=== PATIENT | female | born 1980 | race Caucasian/White ===

== ENCOUNTER 2019-11-06 19:17 | Inpatient (IN) | payer OTHER ==
[2019-11-06] MEDS ORDERED: Ondansetron PF 4 MG/2 ML Vial ONE ×2 (20:03→21:24)
[2019-11-06] MEDS ORDERED: Neomycin-Polymyxin 1 ML AMP ONE (20:40)
[2019-11-06] MEDS ORDERED: Bupivacaine PF 0.5% 30 ML VIAL ONE (20:41)
[2019-11-06] MEDS ORDERED: Lidocaine 1% PF 5 ML VIAL ONE (21:24)
[2019-11-06] MEDS ORDERED: Succinylcholine Chloride 20 MG/ML 10 ml SYRINGE FS ONE (21:24)
[2019-11-06] MEDS ORDERED: PROPOFOL 200 MG/20 ML VIAL ONE (21:24)
[2019-11-06] MEDS ORDERED: Ketorolac Tromethamine 30 MG/ML VIAL ONE (21:24)
[2019-11-06] MEDS ORDERED: Rocuronium Bromide 10 MG/ML (10ML VIAL) ONE (21:24)
[2019-11-06] MEDS ORDERED: Dexamethasone 20 MG/5 ML VIAL ONE (21:24)
--- NOTE | 2019-11-06 22:58 | RAD ---
LEFT ANKLE TWO VIEWS: History: Fracture of the tibia and fibula. FINDINGS: Four spot fluoroscopic images of the left ankle demonstrate interval reduction of the distal tibial f racture since earlier exam at 6:10 p.m. The displaced fracture of the fibula is unchanged. A fracture fragment is seen at the lateral aspect of the distal tibia. POS: OFF
[2019-11-06] MEDS ORDERED: Promethazine HCl 25 MG/ML VIAL IM PRN (23:06)
[2019-11-06] MEDS ORDERED: Promethazine HCl 25 MG/ML VIAL SLOW IVP PRN (23:06)
[2019-11-06] MEDS ORDERED: Ondansetron HCl/PF 4 MG/2 ML Vial IVP PRN (23:06)
[2019-11-06] MEDS ORDERED: Fentanyl 100 MCG/2 ML VIAL ONE (23:11)
[2019-11-07] MEDS ORDERED: Promethazine HCl 25 MG/ML VIAL IM PRN (00:48)
[2019-11-07] MEDS ORDERED: Dextrose 50% Abboject 50 ML SYRINGE SLOW IVP PRN (00:48)
[2019-11-07] MEDS ORDERED: Ondansetron ODT 4 MG TAB PO PRN (00:48)
[2019-11-07] MEDS ORDERED: Ondansetron PF 4 MG/2 ML Vial IVP PRN (00:48)
[2019-11-07] MEDS ORDERED: hydrALAZINE 20 MG/ML VIAL SLOW IVP PRN (00:48)
[2019-11-07] MEDS ORDERED: Dextrose 5% in Water 1,000 ML IV PRN (00:48)
[2019-11-07] MEDS: Cyclobenzaprine 10 MG TAB PO PRN ×3 (01:09→17:44)
[2019-11-07] MEDS: traMADol HCl 50 MG TAB PO PRN ×4 (01:10→17:45)
[2019-11-07] MEDS: CEFAZOLIN 2 GM in Premix Bag 1 BAG IVPB SCH ×3 (01:11→17:41)
[2019-11-07] MEDS ORDERED: Acetaminophen 325 MG TAB PO SCH (01:15)
[2019-11-07] MEDS ORDERED: traMADol HCl 50 MG TAB PO SCH (01:15)
[2019-11-07] MEDS ORDERED: Ibuprofen 600 MG TAB PO SCH (01:15)
[2019-11-07 01:26] VITALS: BMI 30.7
--- NOTE | 2019-11-07 03:14 | HP ---
This is Luis E Hawkins PA-C dictating a report for Dr. Altamirano. REQUESTING PHYSICIAN: Du Mckeon. ATTENDING SURGEON: Dr. Altamirano. CONSULTATIONS: Orthopedics, Dr. Lauren. HISTORY OF PRESENT ILLNESS: The patient is a 39-year-old woman who was transferred to our facility from [place] after she had fallen from a ladder and sustained a left open tibia and fibular fracture. She was taken to the operating room shortly after arriving here and I was notified once she had been postop from an external fixator placement. At the time of my exam, she was already on the surgical floor. The patient denied any loss of consciousness. Family at bedside confirmed this. Her chief complaint is numbness and tingling to her left foot. ALLERGIES: IODINE AND STADOL. CURRENT MEDICATIONS: Symbicort. PAST MEDICAL HISTORY: Asthma. PAST SURGICAL HISTORY: Partial hysterectomy, bilateral tubal ligation. SOCIAL HISTORY: The patient denies drug or tobacco use. She rarely drinks alcohol and she lives at home with family. REVIEW OF SYSTEMS: 10-point review of systems is negative except as otherwise stated. PHYSICAL EXAMINATION: VITAL SIGNS: Temperature is 98.2, heart rate 100, blood pressure 125/82, respirations 18, oxygen saturation 100% on room air. GENERAL: The patient is resting comfortably in bed. She is awake, alert, and oriented x3. [place] Coma Scale is 15. HEENT: Head is normocephalic and atraumatic. Eyes, extraocular motions intact. PERRLA bilaterally. Ears are atraumatic without discharge. Nose is atraumatic without discharge. Oropharynx is clear. NECK: Nontender. Trachea is midline. No JVD. CHEST: Clear to auscultation with good inspiratory and expiratory effort. HEART: Regular rate and rhythm. ABDOMEN: Soft, flat, nontender with active bowel sounds. EXTREMITIES: Neurovascularly intact x4. The left lower extremity, the patient has "numbness and tingling." She is grossly neurologically intact. Capillary refill is less than 2 seconds in that foot. Patient's external fixator is in place. Pin site is clean, dry, and intact. LABORATORY DATA: There are no labs to review. RADIOGRAPHS: Postop radiographs of the left ankle demonstrate interval reduction of the distal tibia and fibular fractures from earlier. The displaced fracture of the fibula is unchanged. ASSESSMENT AND PLAN: 1. Status post fall from ladder approximately 4 feet. 2. Open left tibia and fibular fracture. 3. Status post external fixator placement. 4. Acute pain secondary to above. 5. Left lower extremity neurapraxia, present on arrival. PLAN: Plan will be to initiate a diet. The patient will have pain control in the morning. Begin physical and occupational therapy and discuss placement. The patient initially would like to be discharged home. Job ID: [id number]
[2019-11-07] MEDS: Acetaminophen 325 MG TAB PO SCH ×3 (05:03→17:42)
[2019-11-07] MEDS: Ibuprofen 600 MG TAB PO SCH ×3 (05:03→21:06)
[2019-11-07] MEDS: traMADol HCl 50 MG TAB PO SCH ×3 (05:04→17:45)
[2019-11-07 05:06] LABS: #Lymphocytes 1.1 thou/uL (1.20-3.40); #Monocytes 0.6 thou/uL (0.11-0.59); #Neutrophils 15.6 thou/uL (1.40-6.50); %Basophils 0.1 % (0.0-1.0); %Lymphocytes 6.3 % (21.0-51.0); %Monocytes 3.2 % (0.0-10.0); %Neutrophils 90.3 % (42.0-75.0); Hemoglobin 10.8 g/dL (12.0-16.0); Mean Corpuscular Hemoglobin 30.7 pg (27.0-31.0); Mean Corpuscular Volume 90.5 fL (78.0-98.0); Platelet Count 269 thou/uL (130-400); RBC Distribution Width 13.5 % (11.5-14.5); White Blood Cell (WBC) Count 17.3 thou/uL (4.8-10.8)
[2019-11-07 05:27] LABS: Anion Gap 16 mmol/L (10-20); BUN (Urea Nitrogen) 7 mg/dL (7.0-18.7); Calc. Creatinine Clearance 137 mL/min (70-130); Calcium 8.4 mg/dL (7.8-10.44); Carbon Dioxide 16 mmol/L (22-29); Chloride 107 mmol/L (98-107); Estimated GFR-MDRD 89; Glucose 143 mg/dL (70-105); Potassium 4.2 mmol/L (3.5-5.1); Sodium 135 mmol/L (136-145)
[2019-11-07] MEDS ORDERED: Mometasone/Formoterol 120 PUFF INHALER INH PRN (06:30)
--- NOTE | 2019-11-07 07:55 | CT ---
PRELIMINARY REPORT/[facility]/EMERGENCY AFTER HOURS PROCEDURE EXAM: CT LOWER EXT LT WO CON HISTORY: S/P SURGERY COMPARISON: None FINDINGS: Comminuted mild displaced fracture of the proximal fibular head. Comminuted displaced fracture of the distal tibial metaphysis, with intra-articular extension to the tibial plafond and. Displaced, foreshortened distal fibular shaft fracture. External fixation hardware, with fixation screws within the proximal tibial shaft and calcaneus. Soft tissue emphysema throughout the ankle, superimposed on soft tissue swelling. IMPRESSION: 1. External fixation hardware spanning a distal tibial fracture. 2. Additional proximal and distal fibular fractures as above. ELECTRONICALLY SIGNED BY: Donnie Grace MD Nov 07, 2019 12:42:32 AM LEGAL COLLECTOR This report is intended for review by the ordering physician only, in accordance of law. If you recei ve this report in error, please call [facility] at [phone]. FINAL REPORT EMERGENT AFTER HOURS NONCONTRAST CT DISTAL LEFT LOWER EXTREMITY: HISTORY: Distal tibia, open fracture. Patient is post surgical repair. IMPRESSION: 1. Comminuted distal left tibial metaphyseal fracture with intra-articular extension of the fracture 2. Displaced fracture involving the distal fibular diaphysis with distal fracture fragment displaced laterally by one shaft width. A comminuted fracture involving the fibular head is also seen. There is mild displacement of fracture fragments. 3. Skin clips are seen medial to the level of the distal tibial fracture. There is prominent subcutan eous emphysema at the level of the distal tibial fracture. 4. External fixation device in place transfixing the distal left lower extremity. 5. Mild subcutaneous edema is present at level of fractures. Findings are in agreement with the report by [facility]. Code QA Transcribed Date/Time: 11/07/2019 8:28 AM
[2019-11-07] MEDS: Famotidine 20 MG TAB PO SCH ×2 (08:19→21:06)
[2019-11-07] MEDS: Enoxaparin Sodium 40 MG/0.4 ML SYRINGE SC SCH (09:13)
--- NOTE | 2019-11-07 13:17 | RAD ---
EXAM: 2 views of the right hip HISTORY: Right hip pain after fall from a ladder COMPARISON: None FINDINGS: 2 views of the right hip shows no evidence of acute fracture or dislocation. No degenerativ e changes are seen. No soft tissue swelling is present. IMPRESSION: No evidence of acute osseous abnormality.
--- NOTE | 2019-11-07 13:21 | RAD ---
AP PELVIS: HISTORY: Fall from ladder, pelvic pain, hip pain. FINDINGS/IMPRESSION: No acute fracture or dislocation is identified. POS: LOUIE
--- NOTE | 2019-11-07 14:50 | PRG ---
DATE OF SERVICE: 11/07/2019 SUBJECTIVE: The patient complains of left knee and left ankle pain. She also complains of some right hip pain. Pain is controlled with medications. No acute events overnight. OBJECTIVE: VITAL SIGNS: Temperature 98.2, pulse 69, respirations 18, 100% on room air, blood pressure 103/67. GENERAL: Alert and oriented x3, no acute distress. RESPIRATORY: Nonlabored. CARDIOVASCULAR: Regular rate. MUSCULOSKELETAL: Evaluation of left lower extremity demonstrates some swelling about the left knee. She is tender to palpation over the lateral aspect of the left knee as well. She has positive FHL and EHL. She has minor drainage on the external fixation dressings. Evaluation of right lower extremity demonstrates some tenderness to palpation over the lateral aspect of the right hip. Minor pain with log rolling the right hip. No tenderness to palpation or pain on passive range of motion of the right knee, ankle, or foot. Evaluation of bilateral upper extremities demonstrates no tenderness to palpation or pain on passive range of motion of bilateral shoulder, elbows, wrists, or hands. LABORATORY DATA: White count is 17.3, hemoglobin 10.8, hematocrit 31.7, platelets 269. Sodium 135, potassium 4.2, chloride 107, carbon dioxide 16, BUN 7, creatinine 0.73. IMAGING: X-rays of the right hip obtained this morning demonstrates no acute bony abnormalities. CT scan of left lower extremity postoperatively yesterday evening demonstrates a minimally displaced left fibular head fracture. Comminuted distal tibia fracture and posterior malleolus/lateral malleolus fracture. ASSESSMENT AND PLAN: A 39-year-old female status post I and D and ex-fix of a right grade 3A open distal tibia fracture, fibular fracture. She will remain on IV antibiotics until 48 hours. She will be discharged likely tomorrow. She is nonweightbearing on the left lower extremity. X-rays of the right hip are negative for acute abnormalities. Continue pain control. We appreciate the [facility] for their assistance in her care. The patient will be seen in our clinic in 1 week's time. I will arrange followup for her. She will need definitive fixation in approximately 10 to 14 days. She did verbalize understanding of our plan. Job ID: [id number]
[2019-11-07] MEDS ORDERED: HYDROcodone/Acetaminophen 7.5/325 mg Tablet PO SCH (23:00)
[2019-11-07] MEDS ORDERED: Gabapentin 300 MG CAP PO SCH (23:00)
[2019-11-08] MEDS: traMADol HCl 50 MG TAB PO SCH ×3 (00:56→12:20)
[2019-11-08] MEDS: Cyclobenzaprine 10 MG TAB PO PRN ×2 (00:56→09:35)
[2019-11-08] MEDS: CEFAZOLIN 2 GM in Premix Bag 1 BAG IVPB SCH ×2 (00:56→09:20)
[2019-11-08] MEDS: Acetaminophen 325 MG TAB PO SCH ×3 (00:56→12:20)
[2019-11-08] MEDS: Ibuprofen 600 MG TAB PO SCH ×2 (06:01→15:12)
[2019-11-08] MEDS: traMADol HCl 50 MG TAB PO PRN ×2 (06:02→12:21)
[2019-11-08] MEDS ORDERED: Gabapentin 300 MG CAP PO SCH (09:00)
--- NOTE | 2019-11-08 09:05 | PRG ---
DATE OF SERVICE: 11/08/2019 SUBJECTIVE: The patient complains of left foot pain. Pain is controlled with medications. No acute events overnight. Denies any nausea or vomiting. OBJECTIVE: VITAL SIGNS: Previous vitals; blood pressure 107/71, temperature 98.2, pulse 78, respirations 18, and saturations 100% on room air. GENERAL: Alert and oriented x3, in no acute distress. RESPIRATORY: Nonlabored. CARDIOVASCULAR: Regular rate. MUSCULOSKELETAL: Evaluation of left lower extremity demonstrates minor drainage from the pin sites as expected. She has some swelling of the left foot. She has positive FHL, some difficulty with EHL at this time. Gross movement of the left foot digits demonstrates no pain. No pain on passive stretch of the digits. No excessive swelling of the . She has tenderness to palpation of the left knee given her known lateral fibular head fracture as expected. Minor tenderness medially as well. No excessive instability of the left knee noted. Evaluation of the right hip demonstrates some tenderness to palpation laterally. Previous x-rays were normal. Evaluation of bilateral upper extremities today demonstrates no tenderness to palpation or pain on active range of motion of bilateral shoulders, elbows, wrists or hands. Motor intact to right and left lower extremity. NEUROVASCULAR: Sensation intact to light touch in the plantar aspect of the foot, dorsal lateral aspect of the foot. She has some numbness to the medial aspect of the foot, which is as expected given her saphenous vein injury noted intraoperatively. Sensation intact to light touch L4 through S1 dermatomes to right lower extremity. She has cap refill less than 2 seconds in all digits. 2+ DP pulses bilaterally. LABORATORY DATA: No new labs today. ASSESSMENT AND PLAN: A 39-year-old female, status post I and D, and ex-fix of a grade 3A open distal tibia and fibular shaft fracture with posterior malleolar component on postop day #2. The patient is nonweightbearing on left lower extremity. The patient also has a nondisplaced left fibular head fracture noted on intraoperative imaging. X-rays of the right hip performed yesterday are normal without any acute fractures or dislocation. Secondary survey of bilateral upper extremities, right lower extremity is negative. The patient is pending discharge today. From Orthopedic's perspective, she can be discharged to home nonweightbearing on left lower extremity. We will call the patient and get her in clinic here in the next week for definitive fixation. Prescriptions were in the chart for the patient's postop pain control and antibiotics. Please call with questions [phone]. Job ID: [id number]
[2019-11-08] MEDS: Famotidine 20 MG TAB PO SCH (09:19)
[2019-11-08] MEDS: Enoxaparin Sodium 40 MG/0.4 ML SYRINGE SC SCH (09:19)
[2019-11-08 15:22] VITALS: BP 108/69; TEMP 98.3
--- NOTE | 2019-11-08 18:49 | DIS ---
DATE OF ADMISSION: 11/07/2019 DATE OF DISCHARGE: 11/08/2019 ADMISSION DIAGNOSES: Fall from ladder and left open tib-fib fracture and proximal fibular fracture. DISCHARGE DIAGNOSES: Fall from ladder and left open tib-fib fracture and proximal fibular fracture. CONSULTING PHYSICIAN: Dr. Lauren with Orthopedic Surgery. PROCEDURES PERFORMED: The patient went to the OR on November 07, 2019, and had an I and D of a 10 x 3 cm open wound of the distal medial tibia with removal of debris; complex wound closure of 10 x 3 wound, medial tibia; and application of ankle spanning external fixation device. HOSPITAL COURSE: The patient is a 39-year-old female, presented to the emergency department after a fall from a ladder. She was found to have a left distal tib-fib fracture, which was open as well as a proximal left fibular fracture. She went to the OR on the same day with Dr. Lauren and had an ex-fix placed to that lower extremity. She received IV antibiotics and was subsequently discharged home with a walker. She will return to clinic in 1 week for further evaluation of the wound, and Dr. Lauren will evaluate for possible internalization of the fixation at that time. DISCHARGE DISPOSITION: Home. DISCHARGE CONDITION: Satisfactory. PHYSICAL EXAMINATION: VITAL SIGNS: Temperature 98.2, pulse 70, respirations 18, oxygen saturation 96% on room air, blood pressure 95/60. GENERAL: Well-appearing young female, lying in bed with no signs of acute distress. PULMONARY: Equal chest rise and fall. Clear breath sounds bilaterally. No signs of acute respiratory distress. CARDIAC: Regular rate and rhythm. GASTROINTESTINAL: Soft, nontender, and nondistended. EXTREMITIES: 2+ pulses in all extremities. Gross motor and sensation are intact. Left foot is warm and dry. Ex-fix of the left lower extremity is in place with dressing that is clean and dry in place. DISCHARGE INSTRUCTIONS: The patient was discharged home. Activity as tolerated, nonweightbearing in the left lower extremity. Regular diet. She will receive a walker. DISCHARGE MEDICATIONS: Include: 1. Tylenol. 2. Symbicort. 3. Flexeril. 4. Lovenox. 5. Gabapentin. 6. Ibuprofen. 7. Tramadol. FOLLOWUP APPOINTMENTS: The patient is to follow up with Dr. Lauren. No need for followup with Trauma Clinic. This is a summary of the patient's hospitalization. For full details, please see her medical record in its entirety. Job ID: [id number]
== END 2019-11-08 15:58 | disposition home or self-care (01) | DRG 493 ==
LOC: ERS 19:17 → SURG A 21:16 → SDC/OP 22:37 → SURG A 11-07 00:45
PROVIDERS: ADMIT Orthopaedic Surgery; ATTEND Orthopaedic Surgery
PROC: 0QSH05Z Reposition Left Tibia with External Fixation Device, Open Approach (ICD-10-PCS; principal; 2019-11-07)
DX: S82.392C Other fracture of lower end of left tibia, initial encounter for open fracture type IIIA, IIIB, or IIIC (principal); S85.31 Laceration of greater saphenous vein at lower leg level; S74.02XA Injury of sciatic nerve at hip and thigh level, left leg, initial encounter; S86.812A Strain of other muscle(s) and tendon(s) at lower leg level, left leg, initial encounter; S82.452A Displaced comminuted fracture of shaft of left fibula, initial encounter for closed fracture; S82.892A Other fracture of left lower leg, initial encounter for closed fracture; S82.492A Other fracture of shaft of left fibula, initial encounter for closed fracture; W11.XXXA Fall on and from ladder, initial encounter; J45.909 Unspecified asthma, uncomplicated; Z88.5 Allergy status to narcotic agent; Z98.51 Tubal ligation status; Z90.710 Acquired absence of both cervix and uterus; Z79.51 Long term (current) use of inhaled steroids
CPT/HCPCS: 36415; 72170; 76000; 80048; 85025; 96374; C1713; J0690; J1100; J1650; J1885; J2001; J2405; J2704; J3010; S0020